=== PATIENT | male | born 1955 | race Caucasian/White ===

== ENCOUNTER 2016-10-04 10:16 | Observation (INO) | payer BC ==
[~2016-10-04] VITALS: Ht 182.9 cm; Wt 115.0 kg
[2016-10-04] VITALS (9 sets, daily range): BP systolic 150–169; BP diastolic 72–99; PULSE 59–84; RESP 12–17; TEMP 96.8–98.3; O2SAT 96–99
[~2016-10-04 10:16] MED LIST: AMLO5TAB22 PO; ASPI325T PO; ENOX40P SQ; LISI20 PO; LORTA5 PO; OMEP20TA PO; Z.0.COMMODE-3:1; Z.0.WALKERFRONT
[2016-10-04] MEDS ORDERED: OMEP20TA PO (10:43)
[2016-10-04] MEDS ORDERED: AMLO5TAB2 PO (10:43)
[2016-10-04] MEDS ORDERED: MULTTAB67 PO (10:43)
[2016-10-04] MEDS ORDERED: LISI-515 PO (10:43)
[2016-10-04] MEDS ORDERED: ASPIRIN 81 MG CHEW TAB PO ONE (11:15)
[2016-10-04] MEDS ORDERED: SODIUM CHLORIDE 0.9% FLUSH 10 ML FLUSH IVF PRN (11:15)
[2016-10-04 11:49] LABS: AUTOMATED NEUTROPHIL # 3.6 TH/MM3 (1.8-7.7); BASOPHIL % 0.6 % (0.0-2.0); EOSINOPHIL # 0.1 TH/MM3 (0-0.4); EOSINOPHIL % 2.4 % (0.0-4.0); HEMATOCRIT 46.5 % (39.0-51.0); HEMO FLAGS DIFF FINAL; LYMPH % 22.8 % (9.0-44.0); LYMPHOCYTE # 1.3 TH/MM3 (1.0-4.8); MEAN CELL VOLUME 89.4 FL (80.0-100.0); MEAN CORPUSCULAR HEMOGLOBIN 29.8 PG (27.0-34.0); MEAN CORPUSCULAR HGB CONC 33.4 % (32.0-36.0); MONO % 10.7 % (0.0-8.0); NEUT % 63.5 % (16.0-70.0); PLATELET COUNT 177 TH/MM3 (150-450); RED CELL DISTRIBUTION WIDTH 14.6 % (11.6-17.2); WHITE BLOOD COUNT 5.7 TH/MM3 (4.0-11.0)
[2016-10-04 12:02] LABS: PROTHROMBIN TIME - PATIENT 10.6 SEC (9.8-11.6)
[2016-10-04 12:04] LABS: ANION GAP 9 MEQ/L (5-15); APTT (PATIENT) 25.2 SEC (24.3-30.1); BICARBONATE 28.5 MEQ/L (21.0-32.0); BLOOD UREA NITROGEN 16 MG/DL (7-18); CHLORIDE 106 MEQ/L (98-107); GLOMERULAR FILTRATION RATE 74 ML/MIN (>89); MAGNESIUM 2.2 MG/DL (1.5-2.5); POTASSIUM 3.7 MEQ/L (3.5-5.1); SODIUM (NA) 143 MEQ/L (136-145)
--- NOTE | 2016-10-04 12:06 | RADRPT ---
EXAM DATE/TIME: 10/04/2016 11:14 [place] COMPARISON: CHEST SINGLE AP, April 22, 2012, 23:04. INDICATIONS : Chest pain. MEDICAL HISTORY : Hypertension. Smoker. SURGICAL HISTORY : None. ENCOUNTER: Initial ACUITY: 1 week PAIN SCORE: 8/10 LOCATION: Left chest FINDINGS: Portable AP view of the chest demonstrates a normal-sized cardiac silhouette. No effusion, consolidat ion, or pneumothorax is visualized. The bones and soft tissues demonstrate no acute abnormality. CONCLUSION: No acute cardiopulmonary abnormality is identified. Tristian Rubalcava MD on October 04, 2016 at 12:04 Board Certified Radiologist. This report was verified electronically.
[2016-10-04 12:07] LABS: CREATINE KINASE 106 U/L (39-308)
[2016-10-04 12:20] LABS: CKMB 0.8 NG/ML (0.5-3.6)
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
[2016-10-04 14:54] LABS: CREATINE KINASE 101 U/L (39-308)
[2016-10-04] MEDS ORDERED: ACETAMINOPHEN 500 MG CPLT PO PRN (15:00)
[2016-10-04 15:06] LABS: CKMB 0.8 NG/ML (0.5-3.6)
[2016-10-04 18:10] LABS: CREATINE KINASE 91 U/L (39-308)
[2016-10-04] MEDS: LISINOPRIL 20 MG TAB PO SCH (21:02)
[2016-10-05 00:18] VITALS: BP 120/75; PULSE 59; RESP 17; TEMP 97.3; O2SAT 94
[2016-10-05 00:41] VITALS: PULSE 60
[2016-10-05 03:26] VITALS: BP 148/89; PULSE 59; RESP 17; TEMP 97.6; O2SAT 97
[2016-10-05 04:44] VITALS: PULSE 51
[2016-10-05 08:43] VITALS: PULSE 74
--- NOTE | 2016-10-05 08:46 | EKG ---
Date Performed: 10/04/2016 Time Performed: 17:25:40 PTAGE: 60 years EKG: SINUS BRADYCARDIA BORDERLINE ECG PREVIOUS TRACING : 10/04/2016 13.55 Since previous tracing, no significant change noted DOCTOR: Jose Alejandro Salazar Interpretating Date/Time 10/05/2016 08:46:33
--- NOTE | 2016-10-05 08:47 | EKG ---
Date Performed: 10/04/2016 Time Performed: 13:55:04 PTAGE: 60 years EKG: Sinus rhythm NORMAL ECG PREVIOUS TRACING : 10/04/2016 11.16 Since previous tracing, no significant change noted DOCTOR: Jose Alejandro Salazar Interpretating Date/Time 10/05/2016 08:47:17
--- NOTE | 2016-10-05 08:48 | EKG ---
Date Performed: 10/04/2016 Time Performed: 11:16:52 PTAGE: 60 years EKG: Sinus rhythm WITH OCCASIONAL VENTRICULAR PREMATURE COMPLEXES BORDERLINE ECG PREVIOUS TRACING : 09/05/1993 11.21 Since previous tracing, no significant change noted DOCTOR: Jose Alejandro Salazar Interpretating Date/Time 10/05/2016 08:47:28
[2016-10-05 08:52] VITALS: BP 150/93; PULSE 63; RESP 20; TEMP 96.8; O2SAT 96
[2016-10-05] MEDS ORDERED: MULTIVITAMIN TAB PO SCH (09:00)
[2016-10-05] MEDS ORDERED: amLODIPine BESYLATE 5 MG TAB PO SCH (09:00)
[2016-10-05] MEDS ORDERED: ASPIRIN 325 MG TAB PO SCH (09:00)
[2016-10-05] MEDS ORDERED: PANTOPRAZOLE SOD 20 MG DELAYED RELEASE TAB PO SCH (09:00)
[2016-10-05] MEDS: LISINOPRIL 20 MG TAB PO SCH (09:38)
--- NOTE | 2016-10-05 09:53 | HHI.DCPOC ---
Discharge Care Plan Diagnosis: (1) Atypical chest pain (2) HTN (hypertension) (3) GERD (gastroesophageal reflux disease) Goals to Promote Your Health * To prevent worsening of your condition and complications * To maintain your health at the optimal level Directions to Meet Your Goals Take your medications as prescribed Follow your dietary instruction Follow activity as directed Keep your appointments as scheduled Take your immunizations and boosters as scheduled If your symptoms worsen call your PCP, if no PCP go to Urgent Care Center or Emergency Room Smoking is Dangerous to Your Health. Avoid second hand smoke Call the 24-hour hour crisis hotline for domestic abuse at Joy Brooks Oct 05, 2016 09:52
--- NOTE | 2016-10-05 10:15 | HHI.DS ---
Discharge Summary Admission Date Oct 04, 2016 at 13:07 Discharge Date: Oct 05, 2016 Admitting Diagnosis chest pain, rule out ACS (1) Atypical chest pain Diagnosis: Principal ICD Codes: R07.89 - Other chest pain Status: Acute (2) HTN (hypertension) Diagnosis: Secondary ICD Codes: I10 - HTN (hypertension) Status: Chronic (3) GERD (gastroesophageal reflux disease) Diagnosis: Secondary ICD Codes: K21.9 - GERD (gastroesophageal reflux disease) Status: Chronic CBC/BMP: 10/04/16 1035 10/04/16 1035 Significant Findings Laboratory Tests Test 10/04/16 10:35 10/04/16 14:16 10/04/16 16:35 10/04/16 17:25 Monocytes (%) (Auto) 10.7 % (0.0-8.0) Calcium Level 8.3 MG/DL (8.5-10.1) Estimat Glomerular Filtration Rate 74 ML/MIN (>89) Troponin I LESS THAN 0.02 NG/ML LESS THAN 0.02 NG/ML LESS THAN 0.02 NG/ML Imaging Last Impressions Chest X-Ray 10/04/16 1111 Signed Impressions: Service Date/Time: Tuesday, October 04, 2016 11:14 - CONCLUSION: No acute cardiopulmonary abnormality is identified. Tristian Rubalcava MD Hospital Course 60-year-old male with history of hypertension and GERD presenting to the emergency room for further evaluation chest pain. Proceeded with exercise stress test without signs of ischemia. Discharged home. Encouraged to keep blood pressure log and follow a low sodium diet. Also encouraged him to speak with PCP regarding statin therapy due to reported strong family history of cardiovascular disease. Pt Condition on Discharge: Good Discharge Disposition: Discharge Home Discharge Instructions DIET: Follow Instructions for: Heart Healthy Diet, Low Sodium Diet Activities you can perform: Regular-No Restrictions Joy Brooks Oct 05, 2016 10:15
--- NOTE | 2016-10-07 12:13 | TR ---
Date Performed: 10/05/2016 Time Performed: 09:04:40 DOCTOR: Jose Alejandro Salazar DRUG LIST: CLINICAL HISTORY: REASON FOR TEST: Chest pain, RULE OUT ACS REASON FOR ENDING: OBSERVATION: CONCLUSION: Isrrael protocol completed. Stopped sec to exceeding target heart rate and leg fatigue . Maximum GI=346 Target HR Achieved=90.0% Maximum YL=184/118 Total Exercise Time=8:01. No st t segmen t changes to sugg ischemia. No reprod chest pain. Freq PVC. Hypertensive response at peak. Good exerc ise tolerance. Recovery quick and unremarkable. COMMENTS: Patient exercised using the Isrrael protocol. No electrocardiographic changes were seen to suggest ischemia. Hemodynamic response to exercise was normal. No significant arrhythmia was prese nt.
== END 2016-10-05 11:51 | disposition home or self-care (01) ==
LOC: NEPE 10:16 → NEDA 13:07 → NEPFCDU 14:30
PROVIDERS: ADMIT Internal Medicine Cardiovascular Disease; ATTEND Internal Medicine Cardiovascular Disease
DX: R07.89 Other chest pain (principal); M25.551 Pain in right hip; R00.1 Bradycardia, unspecified; I10 Essential (primary) hypertension; K21.9 Gastro-esophageal reflux disease without esophagitis; G47.30 Sleep apnea, unspecified; M19.90 Unspecified osteoarthritis, unspecified site; F17.290 Nicotine dependence, other tobacco product, uncomplicated; Z79.899 Other long term (current) drug therapy; Z82.49 Family history of ischemic heart disease and other diseases of the circulatory system; Z96.643 Presence of artificial hip joint, bilateral
CPT/HCPCS: 71010; 80048; 82550; 82552; 83735; 84484; 85025; 85379; 85610; 85730; 93005; 93017; 99285; G0378

== ENCOUNTER → 2017-04-08 | Day surgery (SDC) | payer BC ==
[~2017-04-08] VITALS: Ht 182.9 cm; Wt 118.8 kg
[~2017-04-08] MED LIST changes: +ACETAMINOPHEN 1000 MG/100 ML 100 ML IV ONE; +AMLO5TAB2 PO; -AMLO5TAB22 PO; -ASPI325T PO; +BUPIVACAINE HCL PF 0.25% 30 ML VIAL ONE; +BUPIVACAINE LIPOSOME PF 1.3% 20 ML VIAL ONE; +BUPIVACAINE/EPINEPHRINE 0.25% 50 ML VIAL ONE; +CHLORHEXIDINE GLUCONATE 2 % 1 PACK (2 CLOTHS) TOPICAL PRN; +DEXAMETHASONE SOD PHOS 4 MG/ML VIAL IV ONE; -ENOX40P SQ; +GLYCOPYRROLATE 1 MG/5 ML VIAL IV PUSH ONE; +KETOROLAC TROMETHAMINE 30 MG/ML (IVP) VIAL ONE; +LACTATED RINGER'S 1000 ML INJ 1,000 ML IV ONE; +LACTATED RINGER'S 1000 ML IV PRN; +LIDOCAINE HCL 1% PF 5 ML SYRINGE OTHER ONE; +LISI-515 PO; -LISI20 PO; -LORTA5 PO; +METOPROLOL TARTRATE 25 MG TAB PO PRN; +MIDAZOLAM HCL 5 MG/ML VIAL (1 ML) ONE; +MORPHINE SULFATE 4 MG/ML INJ ONE; +MULTTAB67 PO; +NEOSTIGMINE 5 MG/5 ML SYRINGE IV PUSH ONE; -OMEP20TA PO; +OMEP20TA93 PO; +ONDANSETRON HCL 4 MG/2 ML VIAL IV PUSH ONE; +POVIDONE IODINE 5% (ANTISEPSIS KIT) 4 APPLICATIONS EACH NARE PRN; +PROPOFOL 200 MG/20 ML AMP IV ONE; +ROCURONIUM INJ 50 MG/5 ML SYRINGE IV PUSH ONE; +SODIUM CHLORID 0.9% 500 ML IV PRN; -Z.0.COMMODE-3:1; -Z.0.WALKERFRONT; +ceFAZolin 2 GM PREMIX 50 ML IV SCH; +ePHEDrine/NS 25 MG/5 ML SYRINGE IV ONE
[2017-04-08 10:30] VITALS: PULSE 59
--- NOTE | 2017-04-08 11:32 | MP ---
cc: Mick Arrington MD DATE OF OPERATION: 04/08/2017 PREOPERATIVE DIAGNOSIS: Umbilical hernia. POSTOPERATIVE DIAGNOSIS: Umbilical hernia. PROCEDURE: Repair of umbilical hernia with Ventralight ST mesh with Echo deployment system. SURGEON: Mick Arrington MD NECK PINNER: Ana Gardner [id number] ANESTHESIA: General endotracheal. OPERATIVE FINDINGS: The patient was found to have a 2.5 cm umbilical hernia defect with omentum inspissated within the defect. There were no other abnormalities noted. The patient had minimal fatty infiltration of the peritoneum. OPERATIVE PROCEDURE: The patient was brought to the operating room after having undergone placement of a TAP block with Exparel in preop holding. He underwent satisfactory general endotracheal anesthesia and the abdomen was then prepped and draped in the usual sterile fashion. An [place] drape was placed over the abdomen. Marcaine 0.25% with epinephrine was used to infiltrate the skin for local anesthesia. A small incision was made in the left subcostal region and by blunt dissection, the peritoneal cavity was entered with care being taken not to injure the underlying viscera. A 12 mm balloon-tipped trocar was placed within the peritoneal cavity and the balloon inflated. The abdomen was insufflated to 15 mmHg using carbon dioxide. The camera was reinserted and visceral injury inspected for, with none being identified. Under direct visualization, two 5 mm ports were placed in the left lateral aspect of the abdomen. The umbilical hernia defect was identified without problem and the omentum was taken down with a Harmonic scalpel. The inspissated peritoneal fat was taken down with a Harmonic scalpel as well and hemostasis was assured. The hernia was measured and a 4-1/[address] Echo deployment system mesh was selected. The mesh was rolled, soaked with saline, and inserted in the peritoneal cavity without difficulty. The exit site of the insufflation tubing was selected and a small defect made in the skin after anesthetizing it was Marcaine. Using the [place] suture passer, the insufflation tubing was brought externally. It was then used to insufflate the backbone of the mesh and was pulled tight against the anterior abdominal wall, where it was secured with a hemostat. The mesh was positioned as desired and was secured circumferentially with AbsorbaTacks. The mesh backbone was then removed without problem. The remainder of the mesh was secured in a triple crown effect using AbsorbaTacks. The mesh was seen to cover the defect completely and was secure against the anterior abdominal wall. Hemostasis was checked for and found to be satisfactory. Carbon dioxide was then vented as completely as possible in the atmosphere. The ports were removed and the 12 mm fascial defect closed with an interrupted 0 Vicryl suture and the skin closed with interrupted 4-0 PDS subcuticular stitches. Steri-Strips and a sterile dressing were placed. The patient was awakened and taken from the operating room, in satisfactory condition, having tolerated the procedure without problem. Estimated blood loss was less than 10 mL. The instrument count, sponge count, and needle counts were reported as being correct x 2 at the end of the procedure. MD JO ANN Dodge/TI , 10:27 AM , 11:30 AM
[2017-04-08 12:50] VITALS: BP 117/72; PULSE 62; RESP 16; TEMP 98.1; O2SAT 93
== END | disposition home or self-care (01) ==
LOC: PHSDC 06:22
PROVIDERS: ATTEND Surgery
DX: K42.9 Umbilical hernia without obstruction or gangrene (principal)
CPT/HCPCS: 00830; 49650; C1781; C9290; J0131; J0690; J1100; J1885; J2250; J2270; J2405; J2710; J3010; J7120